=== PATIENT | male | born 1955 ===

== ENCOUNTER 2020-09-08 06:30 | Day surgery (SDC) | payer OTHER ==
[~2020-09-08 06:30] MED LIST: ALFUZOSIN PO; ATORVASTAT PO; INDOCIN50 MG PO
== END 2020-09-08 15:34 | disposition home or self-care (01) ==
LOC: CIR.AMB 06:30
PROVIDERS: ATTEND Orthopaedic Surgery Hand Surgery
DX: M1A.0211 Idiopathic chronic gout, right elbow, with tophus (tophi) (principal); Z20.822 Contact with and (suspected) exposure to COVID-19